=== PATIENT | female | born 1945 | race Caucasian/White ===

== ENCOUNTER 2016-12-24 11:34 | Emergency (ER) | payer OTHER, MEDICARE ==
[~2016-12-24] VITALS: Ht 154.9 cm; Wt 54.4 kg
[2016-12-24] MEDS ORDERED: MECLIZINE 25MG25 MG PO (12:01)
[2016-12-24] MEDS ORDERED: OMEPRAZOLE20 MG PO (12:01)
[2016-12-24] MEDS ORDERED: LIPITOR80 MG PO (12:02)
[2016-12-24] MEDS ORDERED: EFFIENT10 M2 PO (12:03)
[2016-12-24] MEDS ORDERED: MULTIVITAMIN1 SGL PO (12:04)
[2016-12-24] MEDS ORDERED: GARLIC500 MG PO (12:04)
[2016-12-24] MEDS ORDERED: VITAMIN D1000 IU PO (12:05)
[2016-12-24] MEDS ORDERED: VENTOLIN H0.09 MG/AC IH (12:05)
[2016-12-24] MEDS ORDERED: CARVEDILOL3.125 MG PO (12:06)
[2016-12-24] MEDS ORDERED: VALSARTAN AND H1 TA1 PO (12:07)
[2016-12-24 12:12] LABS: LYMPH # 0.9 K/mm3 (0.7-4.5); LYMPH % 22.7 % (10-50.0)
--- NOTE | 2016-12-24 12:13 | RADIOLOGY REPORT PS360 ---
CHEST(2 VIEWS-NOT PORTABLE) COMPARISON: Portable upright chest 12/19/2008 HISTORY: Shortness of breath TECHNIQUE: PA and lateral chest FINDINGS: The lung spivey are well expanded and appear clear of infiltrate. There is borderline cardio megaly without failure. There is no pleural fluid. There are tiny calcified hilar nodes. IMPRESSION: Borderline cardio megaly, no acute chest pathology noted
--- NOTE | 2016-12-24 12:17 | Emergency Room Report ---
History of Present Illness Time Seen by 114Lilly Presenting Problem in Triage Pt arrived:Walked Presenting Problem:PT REPORTS DIFF IN BREATHING AND HAS A HX OF BLOOD CLOTS AND FEELS THAT SHE MAY HAVE A BLOOD CLOT IN LUNG. Onset of symptoms date/time:12/24/1606/11/499 or onset unknown for: Treatment Prior to Arrival: [employer] Provided by: Sepsis Risk Assessment: Temp: 97.8 B/P: 170/89 MAP: 116 Pulse: 69 Resp: 16 Recent fever? N Clinical Suspician of Infection? N Mental Status: 1 - Regular (Normal Baseline) Sepsis Risk:Low Sepsis Risk Have you (or family members/close friends) recently traveled outside the [place]? N If Yes, where/when: Have you had exposure to infectious disease within the past month? N TB? Other? Specify: Patient has not had a DVT or blood clot in her legs. She refers to blood clots has some bruising on her arms. She has never had pulmonary embolism or blood clots. She states she is on blood thinner for heart disease, she's had history of heart attacks and strokes. She denies any fever chills or cough. He states that she was up at 5 AM and it had onset of RIGHT sided chest pain that was pleuritic moderate in severity and sharp." Going away at 1045am denies any discomfort whatsoever currently. When she had the pain was she was short of breath she denied any nausea or swelling she states it was in the RIGHT midaxillary line in her chest. sHe describes it as being in her lung. She states she is concerned she had a blood clot in her lung she denies any leg pain or swelling. She states she has a history of kidney failure but does not do dialysis ALLERGIES Coded Allergies: Penicillins (12/24/16) acyclovir (12/24/16) aliskiren (From TEKTURNA) (12/24/16) amlodipine (From NORVASC) (12/24/16) amoxicillin (12/24/16) aspirin (12/24/16) azithromycin (From ZITHROMAX) (12/24/16) ceftriaxone (From ROCEPHIN) (12/24/16) cephalexin (12/24/16) codeine (12/24/16) doxycycline (12/24/16) escitalopram (From LEXAPRO) (12/24/16) gemifloxacin (From FACTIVE) (12/24/16) isradipine (From DYNACIRC) (12/24/16) levofloxacin (From LEVAQUIN) (12/24/16) lisinopril (12/24/16) nebivolol (From BYSTOLIC) (12/24/16) olmesartan (From BENICAR) (12/24/16) pentazocine (From TALWIN COMPOUND) (12/24/16) ramipril (From ALTACE) (12/24/16) simvastatin (12/24/16) sulfamethoxazole (From SEPTRA) (12/24/16) trimethoprim (From SEPTRA) (12/24/16) verapamil (From VERELAN) (12/24/16) zolmitriptan (From ZOMIG) (12/24/16) Uncoded Allergies: ALLEREX DF (I-HIVES 07/10/11) Home Medications Reported Medications Omeprazole (Omeprazole 20MG) 20 MG PO DAILY MECLIZINE HCL (Meclizine 25MG) 25 MG PO PRN PRN DIZZINESS Atorvastatin Calcium (Atorvastatin) 40 MG PO DAILY Prasugrel HCl (Effient) 10 MG PO DAILY MULTIVITAMIN (Multivitamins) 1 SGL PO DAILY Garlic 1,000 MG PO DAILY CHOLECALCIFEROL (VITAMIN D3) (Vitamin D3) 1,000 IUNITS PO DAILY ALBUTEROL (Ventolin Hfa) 1 PUFF IH Q6H6 Carvedilol (Carvedilol 3.125MG) 3.125 MG PO BID VALSARTAN/HYDROCHLOROTHIAZIDE (Valsartan-Hctz 160-12.5 MG Tab) 1 TAB PO DAILY History Medical History General CAD? Yes Angina: Yes PR: Yes Hypertension? Yes Hyperlipidemia? No CHF? No DVT? No PE? No COPD? No Asthma? Yes Anemia? No GERD? No Gastric ulcers? No GI Bleed? No Hernia? No Thyroid Problems? No Hypothyroidism? No CVA? No Seizures? No Diabetes? No Renal Insuffiency? No End Stage Renal Disease? No UTI? No Stones? No BPH? No GB Disease: Yes Nephritic Syndrome? No Asplenia? No Hepatitis? No Sickle Cell Disease? No Arthritis? No Migraines? No Cataracts? No Glaucoma? No MRSA? No HIV? No TB? No Anxiety? No Depression? No Cancer? No More? No Immunization Hx DT/Tetanus NOT SURE Flu LAST YEAR Pneumonia 1-4 YRS Surgical Hx Previous Surgery?Y Hysterect TUBAL LIG D & C Cholecystectomy CARDIAC STENT X2 CARDIAC BALLOON SURGERY Family History Family Hx Diabetes No CAD Yes Hypertension Yes Hyperlipidemia Yes Cancer Yes TB Yes Social History Smoking Hx Smoker: Never Smoker Tobacco: No Alcohol Alcohol: No Review of Systems All Other Systems Reviewed and Negative Physical Exam Vital Signs Vital Signs Date Time Temp Pulse Resp B/P Pulse O2 O2 Flow FiO2 Ox Delivery Rate 12/24 1715 97.8 65 16 160/72 99 12/24 1542 62 16 174/85 99 12/24 1450 97.8 58 16 165/75 99 12/24 1352 62 20 152/95 98 12/24 1311 20 98 12/24 1305 20 98 12/24 1304 60 20 137/76 98 12/24 1139 97.8 69 16 170/89 99 General Appearance: Nontoxic Head: Normocephalic, without obvious abnormality, atraumatic. Eyes: conjunctiva/corneas clear ENT: Mucous membranes moist. Neck: No jugular venous distention. Cardiac: regular rate and rhythm Lungs: Clear to auscultation bilaterally Abdomen: Nontender, Nondistended, positive bowel sounds, no rebound : No CVA tenderness Extremities: no edema Musculoskeletal: No chest wall tenderness No Homans sign No calf tenderness No swelling in legs Skin: No rashes or lesions to exposed skin. Neurologic: Alert. No gross focal deficits Psychiatric: Normal affect (Gabino DIAZ, Mina) General Appearance normal appearance Respiratory Status No: respiratory distress. Cardiovascular no JVD Neurologic alert Medical Decision Making LABS/Meds/Orders Pt receiving controlled substance in ED? No Comment 602pm August reports VQ called back with negative VQ 610pm I discussed with patient and her relative that any time there is pain in the area of the chest that he could be from the heart, discussed with her that her electrocardiogram had changed from 2008. Discussed with her sudden and permanent disability. He states he desires to go home and does not desire admission to the hospital have a call out to Dr. Nicole. Second troponin is negative here her VQ scan is done and shows no blood clot. she has been pain free here. [address] Geo Nicole's patient and RIGHT sided chest pain from 5 AM at 10:45 AM and chest pain-free that she is desiring to go home discussed with the electrocardiogram change with a LEFT bundle-branch block that is new from 2008 2 sets enzymes negative VQ scan was negative that I offered patient admission to the hospital and she desired to go home Dr. Guardado states that is okay and they will follow. Results/Orders Laboratory Tests 12/24/16 1644: Troponin I 0.02 12/24/16 1200: Sodium 134 L, Potassium 3.5, Chloride 100, Carbon Dioxide 24, BUN 21 H, Creatinine 1.4 H, Estimated Creat Clear 32 L, Estimated GFR (MDRD) 37 L, Glucose 111 H, Calcium 8.8, Total Bilirubin 0.2, AST 23, ALT 22, Alkaline Phosphatase 140 H, Creatine Kinase 52, CK-MB (CK-2) Rel Index 1.2, CK and CKMB Interp 0.6, Troponin I < 0.02, Total Protein 8.9 H, Albumin 3.3 L, Globulin 5.6 H, Albumin/Globulin Ratio 0.6 L, D-Dimer 975 *H, WBC 3.9 L, RBC 3.42 L, Hgb 10.4 L, Hct 31.1 L, MCV 91.0, RDW 12.4, Plt Count 247, MPV 7.9, Gran % 68.7, Gran # 2.7, Lymphocytes % 22.7, Monocytes % 5.4, Eosinophils % 2.6, Basophils % 0.6, Lymphocytes # 0.9, Monocytes # 0.2, Eosinophils # 0.1, Basophils # 0.0, PUBS MCHC 33.2, MCH 30.2 Current Medication Orders Sig/Akua Start time Last Medication Dose Route Stop Time Status Admin Miscellaneous 1 DOSE ONCE ONE 12/24 1630 UNV 12/24 IV 12/24 1631 1629 Miscellaneous 1 DOSE ONCE ONE 12/24 1630 UNV 12/24 IV 12/24 1631 1629 Sodium Chloride 10 ML ONCE ONE 12/24 1630 UNV 12/24 IV 12/24 1631 1629 Sodium Chloride 10 ML PRN PRN 12/24 1145 AC IV 12/25 1142 Orders Procedure Date/time Status TROPONIN I 12/24 1602 Complete ELECTROCARDIOGRAM REQUEST 12/24 1142 Active IV SALINE LOCK 12/24 1142 Active D-DIMER 12/24 1142 Complete CBC WITH AUTO DIFF 12/24 1142 Complete CARDIAC ENZYMES 12/24 1142 Complete CHEM 12 PROFILE 12/24 1142 Complete CM/EKG CM/microsoft dynamics ax developer Rhythm Normal Sinus Rhythm Rate 63 Ectopy No Comments LEFT bundle branch block EKG rate, NSR, no evid. of ischemic chgs, no ectopy, LBBB Comments Normal axis nonspecific electrocardiogram Departure Departure Time of Disposition 1820 Disposition DC Home or Self Care(routine) Clinical Impression Primary Impression: Chest pain Condition STABLE Referrals Tre Luke MD (PCP/Family) Patient Instructions DI for Chest Pain Additional Instructions As discussed chest pain can cause sudden permanent disability if it comes from heart we have offered U admission to the hospital review of desire to go home. Call Dr. Nicole first thing in the morning for follow-up. return immediately to ER if any discomfort anywhere in your chest or in your "lung" Discharge Counseling Counseled pt/family regarding diagnosis, test results, medications/RX, home care, follow up needs ED Critical Care Critical Care No If Critical Care minutes are documented, the time involved in the performance of seperately reportable procedures was not counted toward critical care time documented. I directly delivered medical care to this critically ill and/or injured patient. Timely evaluation and treatment was necessary to address the significant organ system(s) dysfunction present in this patient. at 1825
[2016-12-24 12:18] LABS: HEMOGLOBIN 10.4 g/dL (12.2-16.2)
--- OUTSIDE RECORDS SUMMARY | 2016-12-24 12:26 | External Medical Summary Rpt ---
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 I16.9 Hypertensiv e crisis, unspecified R07.9 Chest pain, unspecified Z12.31 ENCNTR SCREEN MAMMOGRAM FOR MALIGNANT NEOPLASM OF BREAST Z74.09 Other reduced mobility Z78.0 ASYMPTOMATI C MENOPAUSAL STATE Z86.79 Personal history of other diseases of the circulatory system Results Labs Lab Lab Date Result Refere Interp Status Commen Order Detail nces retati t Range on Troponin I SerPl-mCnc (12-09-2016 07:30) Troponi 1.717 <=0.039 complet n I 017 ng/mL ed SerPl-m 07:30 Cnc aPTT PPP (12-09-2016 07:30) aPTT 50.5 45.0-60 complet PPP 017 seconds .0 ed 07:30 Bas Metab 2000 Pnl SerPl (12-09-2016 07:30) Anion 8.0 3.0-11. complet Gap3 017 mmol/L 0 ed SerPl-s 07:30 Cnc BUN/Cre 16.4 7.0-25. complet at 017 0 ed SerPl 07:30 GFR/BSA 49 >60 complet .pred 017 mL/min/ ed SerPl 07:30 1.73 MDRD-Ar VRat Calcium 9.6 8.7-10. complet 017 mg/dL 4 ed XXX-sCn 07:30 c CO2 25.0 20.0-31 complet SerPl-s 017 mmol/L .0 ed Cnc 07:30 Chlorid 103 99-109 complet e 017 mmol/L ed SerPl-s 07:30 Cnc Potassi 3.7 3.5-5.5 complet um 017 mmol/L ed Bld-sCn 07:30 c Sodium 136 132-146 complet Bld-sCn 017 mmol/L ed c 07:30 Creat 1.10 0.60-1. complet Bld-mCn 017 mg/dL 30 ed c 07:30 BUN 18 9-23 complet Bld-mCn 017 mg/dL ed c 07:30 Glucose 95 70-100 complet 017 mg/dL ed Bld-mCn 07:30 c CBC (hemogram) Bld Auto (12-09-2016 07:30) Platele 208 150-450 complet t # Bld 017 10*3/mm ed Auto 07:30 3 PMV Bld 10.2 fL 6.0-12. complet Auto 017 0 ed 07:30 RDW RBC 41.9 fl 37.0-54 complet Auto 017 .0 ed 07:30 RDW RBC 12-09- 12.5 % 11.3-14 complet 017 .5 ed Auto-Rt 07:30 o MCHC 33.3 32.0-36 complet RBC 017 g/dL .0 ed Auto-mC 07:30 nc MCH RBC 30.3 pg 27.0-31 complet Qn 017 .0 ed Auto 07:30 MCV RBC 90.9 fL 80.0-99 complet Auto 017 .0 ed 07:30 Hct VFr 30.0 % 34.5-44 complet Bld 017 .0 ed Auto 07:30 Hgb 10.0 11.5-15 complet Bld-mCn 017 g/dL .5 ed c 07:30 RBC # 17-2 3.30 3.89-5. complet Bld 017 10*6/mm 14 ed Auto 07:30 3 WBC 12-09- 2.91 3.50-10 complet nRBC 017 10*3/mm .80 ed cor # 07:30 3 Bld aPTT PPP (12-08-2016 17:56) aPTT 49.5 45.0-60 complet PPP 017 seconds .0 ed 17:56 PA ADP PRP-aCnc (12-08-2016 11:29) PA ADP 323 PRU complet PRP-aCn 017 ed c 11:29 aPTT PPP (12-08-2016 11:29) aPTT 49.0 45.0-60 complet PPP 017 seconds .0 ed 11:29 Hgb A1c Bld (12-08-2016 05:41) Hgb A1c 5.70 % 4.80-5. complet MFr 017 60 ed Bld 05:41 aPTT PPP (12-08-2016 05:41) aPTT 58.1 45.0-60 complet PPP 017 seconds .0 ed 05:41 Lipid pnl with direct LDL SerPl (12-08-2016 05:41) Articho 84 0-130 complet ke IgE 017 mg/dL ed Qn 05:41 HDLc 30 40-60 complet SerPl-m 017 mg/dL ed Cnc 05:41 Trigl 109 0-150 complet SerPl-m 017 mg/dL ed Cnc 05:41 Cholest 150 0-200 complet 017 mg/dL ed SerPl-m 05:41 Cnc Troponin I SerPl-mCnc (12-08-2016 00:32) Troponi 2.645 <=0.039 complet n I 017 ng/mL ed SerPl-m 00:32 Cnc aPTT PPP (12-08-2016 00:32) aPTT 35.0 45.0-60 complet PPP 017 seconds .0 ed 00:32 Prothrombin time (12-08-2016 00:32) INR PPP 1.04 complet 017 ed 00:32 Prothro 11.3 9.6-11. complet mbin 017 Seconds 5 ed time 00:32 CBC W Diff pnl,unspecified Bld (12-08-2016 00:32) Imm 0.00 0.00-0. complet Granulo 017 10*3/mm 03 ed cytes # 00:32 3 Bld Basophi 0.00 0.00-0. complet ls # 017 10*3/mm 20 ed Bld 00:32 3 Auto Eosinop 07-16-2 0.01 0.00-0. complet hil # 017 10*3/mm 30 ed Bld 00:32 3 Auto Monocyt 07-16-2 0.36 0.00-1. complet es # 017 10*3/mm 00 ed Bld 00:32 3 Auto Lymphoc 07-16-2 1.00 0.60-4. complet ytes # 017 10*3/mm 80 ed Bld 00:32 3 Auto Neutrop 16-2 2.88 1.50-8. complet hils # 017 10*3/mm 30 ed Bld 00:32 3 Auto Imm -16-2 0.0 % 0.0-0.6 complet Granulo 017 ed cytes/l 00:32 euk NFr Bld Basophi 16-2 0.0 % 0.0-1.0 complet ls/leuk 017 ed NFr 00:32 Bld Auto Eosinop -16-2 0.2 % 0.0-3.0 complet hil/janes 017 ed k NFr 00:32 Bld Auto Monocyt 16-2 8.5 % 0.0-12. complet es/leuk 017 0 ed NFr 00:32 Bld Auto Lymphoc -16-2 23.5 % 24.0-44 complet ytes/le 017 .0 ed uk NFr 00:32 Bld Auto Neutrop 16-2 67.8 % 41.0-71 complet hils/le 017 .0 ed uk NFr 00:32 Bld Auto Platele 16-2 194 150-450 complet t # Bld 017 10*3/mm ed Auto 00:32 3 PMV Bld 16-2 10.0 fL 6.0-12. complet Auto 017 0 ed 00:32 RDW RBC 16-2 41.7 fl 37.0-54 complet Auto 017 .0 ed 00:32 RDW RBC -16-2 12.6 % 11.3-14 complet 017 .5 ed Auto-Rt 00:32 o MCHC 16-2 32.9 32.0-36 complet RBC 017 g/dL .0 ed Auto-mC 00:32 nc MCH RBC 16-2 30.0 pg 27.0-31 complet Qn 017 .0 ed Auto 00:32 MCV RBC 91.2 fL 80.0-99 complet Auto 017 .0 ed 00:32 Hct VFr 28.0 % 34.5-44 complet Bld 017 .0 ed Auto 00:32 Hgb 9.2 11.5-15 complet Bld-mCn 017 g/dL .5 ed c 00:32 RBC # 16- 3.07 3.89-5. complet Bld 017 10*6/mm 14 ed Auto 00:32 3 WBC 4.25 3.50-10 complet nRBC 017 10*3/mm .80 ed cor # 00:32 3 Bld Troponin I SerPl-mCnc (12-07-2016 22:29) Troponi 1.540 <=0.039 complet n I 017 ng/mL ed SerPl-m 22:29 Cnc Troponin I SerPl-mCnc (12-07-2016 19:24) Troponi 0.547 <=0.039 complet n I 017 ng/mL ed SerPl-m 19:24 Cnc Troponin I SerPl-mCnc (12-07-2016 15:54) Troponi 12-07- 0.032 <=0.039 complet n I 017 ng/mL ed SerPl-m 15:54 Cnc TSH SerPl (12-07-2016 15:54) TSH 1.471 0.350-5 complet SerPl 017 mIU/mL .350 ed DL<=0.0 15:54 5 mIU/L-a Cnc Troponin T SerPl Ql (12-07-2016 13:00) Troponi 0.00 0.00-0. complet n I 017 ng/mL 07 ed SerPl-m 13:00 Cnc UA Microscopic Pnl # Ur Auto (12-07-2016 11:58) Ref lab Automat complet test 017 ed ed method 11:58 Microsc opy Hyaline None 0-6 complet Casts 017 Seen ed Ur Ql 11:58 /LPF Auto [place] None None complet s 017 Seen Seen, ed #/area 11:58 /HPF 0-2 UrnS HPF Bacteri [id number] None complet a Ur Ql 017 00 Not Seen, ed Auto 11:58 detecte Trace d SCT /HPF WBC Ur None None complet Ql Auto 017 Seen Seen ed 11:58 /HPF RBC # 12-07- 0-2 None complet Ur 017 /HPF Seen, ed 11:58 0-2 UA Dipstick Pnl Ur (12-07-2016 11:58) Bilirub [id number] Negativ complet Ur Ql 017 09 e ed Strip 11:58 Negativ e SCT Ketones [id number] Negativ complet Ur Ql 017 09 e ed Strip 11:58 Negativ e SCT Glucose [id number] Negativ complet Ur 017 09 e ed Strip-m 11:58 Negativ Cnc e SCT Sp Gr <= 1.001-1 complet Ur 017 1.005 .030 ed Strip 11:58 pH Ur 6.0 5.0-8.0 complet Strip.a 017 ed uto 11:58 Clarity [id number] Clear complet Ur 017 01 ed 11:58 Clear SCT Color [id number] Yellow, complet Ur 017 09 Straw ed 11:58 Yellow color SCT Urobili 0.2 0.2 - complet nogen 017 E.U./dL 1.0 ed Ur Ql 11:58 E.U./dL Strip Nitrite [id number] Negativ complet Ur Ql 017 09 e ed Strip 11:58 Negativ e SCT Leukocy [id number] Negativ complet te 017 09 e ed esteras 11:58 Negativ e Ur Ql e SCT Strip.a uto Prot Ur 30 Negativ complet Ql 017 mg/dL e ed Strip 11:58 (1+) Hgb Ur [id number] Negativ complet Ql 017 09 e ed Strip.a 11:58 Negativ uto e SCT Troponin T SerPl Ql (12-07-2016 10:45) Troponi 12-07- 0.00 0.00-0. complet n I 017 ng/mL 07 ed SerPl-m 10:45 Cnc BNP SerPl-mCnc (12-07-2016 10:40) BNP 125.0 0.0-100 complet SerPl-m 017 pg/mL .0 ed Cnc 10:40 LPL SerPl-cCnc (12-07-2016 10:40) Lipase 66 U/L 6-51 complet SerPl-c 017 ed Cnc 10:40 Comp Metab 1998 Pnl SerPl (12-07-2016 10:40) Anion 12-07-2 9.0 3.0-11. complet Gap3 017 mmol/L 0 ed SerPl-s 10:40 Cnc BUN/Cre 21.8 7.0-25. complet at 017 0 ed SerPl 10:40 Glucose 105 70-100 complet 017 mg/dL ed Bld-mCn 10:40 c Albumin 0.8 1.5-2.5 complet /Glob 017 g/dL ed SerPl 10:40 Globuli 4.7 complet n Ur 017 gm/dL ed Elph-mC 10:40 nc GFR/BSA 49 >60 complet .pred 017 mL/min/ ed SerPl 10:40 1.73 MDRD-Ar VRat Bilirub 0.2 0.3-1.2 complet 017 mg/dL ed SerPl-m 10:40 Cnc ALP 115 U/L 25-100 complet SerPl-c 017 ed Cnc 10:40 AST 12-07- 29 U/L 0-33 complet SerPl-c 017 ed Cnc 10:40 ALT 12-07-2 16 U/L 7-40 complet SerPl w 017 ed 10:40 P-5'-P- cCnc Albumin 12-07- 3.90 3.20-4. complet 017 g/dL 80 ed SerPl-m 10:40 Cnc Prot 12-07-2 8.6 5.7-8.2 complet SerPl-m 017 g/dL ed Cnc 10:40 Calcium 12-07- 10.0 8.7-10. complet 017 mg/dL 4 ed XXX-sCn 10:40 c CO2 23.0 20.0-31 complet SerPl-s 017 mmol/L .0 ed Cnc 10:40 Chlorid 101 99-109 complet e 017 mmol/L ed SerPl-s 10:40 Cnc Potassi 4.3 3.5-5.5 complet um 017 mmol/L ed Bld-sCn 10:40 c Sodium 133 132-146 complet Bld-sCn 017 mmol/L ed c 10:40 Creat 1.10 0.60-1. complet Bld-mCn 017 mg/dL 30 ed c 10:40 BUN 24 9-23 complet Bld-mCn 017 mg/dL ed c 10:40 CBC W Diff pnl,unspecified Bld (12-07-2016 10:40) Neutrop 4.06 1.50-8. complet hils # 017 10*3/mm 30 ed Bld 10:40 3 Auto Imm 0.0 % 0.0-0.6 complet Granulo 017 ed cytes/l 10:40 euk NFr Bld Basophi 0.2 % 0.0-1.0 complet ls/leuk 017 ed NFr 10:40 Bld Auto Eosinop 2.0 % 0.0-3.0 complet hil/janes 017 ed k NFr 10:40 Bld Auto Monocyt 7.7 % 0.0-12. complet es/leuk 017 0 ed NFr 10:40 Bld Auto Lymphoc 15.9 % 24.0-44 complet ytes/le 017 .0 ed uk NFr 10:40 Bld Auto Neutrop 74.2 % 41.0-71 complet hils/le 017 .0 ed uk NFr 10:40 Bld Auto Platele 242 150-450 complet t # Bld 017 10*3/mm ed Auto 10:40 3 PMV Bld 10.2 fL 6.0-12. complet Auto 017 0 ed 10:40 RDW RBC 40.8 fl 37.0-54 complet Auto 017 .0 ed 10:40 RDW RBC 12.4 % 11.3-14 complet 017 .5 ed Auto-Rt 10:40 o MCHC 07-15-2 33.4 32.0-36 complet RBC 017 g/dL .0 ed Auto-mC 10:40 nc MCH RBC 07-15-2 30.2 pg 27.0-31 complet Qn 017 .0 ed Auto 10:40 MCV RBC 07-15-2 90.2 fL 80.0-99 complet Auto 017 .0 ed 10:40 Hct VFr 07-15-2 33.2 % 34.5-44 complet Bld 017 .0 ed Auto 10:40 Hgb 07-15-2 11.1 11.5-15 complet Bld-mCn 017 g/dL .5 ed c 10:40 RBC # 07-15-2 3.68 3.89-5. complet Bld 017 10*6/mm 14 ed Auto 10:40 3 WBC 07-15-2 5.47 3.50-10 complet nRBC 017 10*3/mm .80 ed cor # 10:40 3 Bld Imm 07-15-2 0.00 0.00-0. complet Granulo 017 10*3/mm 03 ed cytes # 10:40 3 Bld Basophi 07-15-2 0.01 0.00-0. complet ls # 017 10*3/mm 20 ed Bld 10:40 3 Auto Eosinop 07-15-2 0.11 0.00-0. complet hil # 017 10*3/mm 30 ed Bld 10:40 3 Auto Monocyt 07-15-2 0.42 0.00-1. complet es # 017 10*3/mm 00 ed Bld 10:40 3 Auto Lymphoc 07-15-2 0.87 0.60-4. complet ytes # 017 10*3/mm 80 ed Bld 10:40 3 Auto
--- OUTSIDE RECORDS SUMMARY | 2016-12-24 12:26 | External Medical Summary Rpt ---
Author Author , PRACHI Cano PRACHI Address Unknown Phone [email or web address] Purpose Continuity of Care Document - 12-07-2016 [...] #/area 11:58 /HPF 0-2 UrnS HPF Bacteri [id number] None complet a Ur Ql 017 00 Not Seen, ed Auto 11:58 detecte Trace d SCT /HPF WBC Ur None None complet Ql Auto 017 Seen Seen ed 11:58 /HPF RBC # 12-07- 0-2 None complet Ur 017 /HPF Seen, ed 11:58 0-2 UA Dipstick Pnl Ur (12-07-2016 11:58) Bilirub [id number] Negativ complet Ur Ql 017 09 e ed Strip 11:58 Negativ e SCT Ketones [id number] Negativ complet Ur Ql 017 09 e ed Strip 11:58 Negativ e SCT Glucose [id number] Negativ complet Ur 017 09 e ed Strip-m 11:58 Negativ Cnc e SCT Sp Gr <= 1.001-1 complet Ur 017 1.005 .030 ed Strip 11:58 pH Ur 6.0 5.0-8.0 complet Strip.a 017 ed uto 11:58 Clarity [id number] Clear complet Ur 017 01 ed 11:58 Clear SCT Color [id number] Yellow, complet Ur 017 09 Straw ed 11:58 Yellow color SCT Urobili 0.2 0.2 - complet nogen 017 E.U./dL 1.0 ed Ur Ql 11:58 E.U./dL Strip Nitrite [id number] Negativ complet Ur Ql 017 09 e ed Strip 11:58 Negativ e SCT Leukocy [id number] Negativ complet te 017 09 e ed esteras 11:58 Negativ e Ur Ql e SCT Strip.a uto Prot Ur 30 Negativ complet Ql 017 mg/dL e ed Strip 11:58 (1+) Hgb Ur [id number] Negativ complet Ql 017 09 e ed [...]
--- OUTSIDE RECORDS SUMMARY | 2016-12-24 12:27 | External Medical Summary Rpt ---
Demographics Preferred Language Mongolian Marital Status Unknown Jewish Affiliation Unknown Race Unknown Ethnic Group Unknown Author Author , PRACHI VELARDE Address Unknown Phone Immunization Unable to retrieve immunization data due to connection failure with Immunization Registry. Please try again later.
--- OUTSIDE RECORDS SUMMARY | 2016-12-24 12:27 | External Medical Summary Rpt ---
Author Author [employer] Organization [employer] Address Unknown Phone Unavailable Purpose Continuity of Care Document - through 2016
--- OUTSIDE RECORDS SUMMARY | 2016-12-24 12:27 | External Medical Summary Rpt ---
Author Author [employer]ACHI Day, [employer] Organization [employer] Address Unknown Phone Unavailable
--- OUTSIDE RECORDS SUMMARY | 2016-12-24 12:27 | External Medical Summary Rpt ---
Demographics Preferred Language Tamazight Marital Status Unknown Alevism Affiliation Unknown Race Unknown Ethnic Group Unknown Author Author , PRACHI VELARDE Address Unknown Phone Immunization Unable to retrieve immunization data due to connection failure with Immunization Registry. Please try again later.
[2016-12-24 12:35] LABS: BUN 21 mg/dL (7-18)
[2016-12-24 12:36] LABS: GFR (ESTIMATED) 37 ML/MIN (59-)
--- NOTE | 2016-12-24 17:43 | RADIOLOGY REPORT PS360 ---
[facility] LUNG VENT PERFUSION Ordering Physician: Mina Lloyd MD Patient Age: 71 years: Female HISTORY: right side chest pain positive ddimer ... Right-sided chest pain. Positive d-dimer. TECHNIQUE: Ventilation scan performed following 35.8 mCi Tc DTPA delivered is aerosol. Subsequent to this a 0.13 mCi MAA injected for the perfusion scan FINDINGS Ventilation scan shows slightly minimal patchy ventilation and slight central clumping of activity which can be seen with COPD or reflect bronchitis COPD Perfusion scan was then performed subsequently. Normal perfusion scan No perfusion defects. No evidence of pulmonary embolism. Good quality perfusion study. With this negative perfusion study less than 3-5 % chance of PE. No ventilation/perfusion mismatch... IMPRESSION: No evidence of pulmonary embolism Normal perfusion scan Very slightly patchy appearance on the ventilation scan with mild central clumping of activity. Nonspecific but can be seen with bronchitis or COPD
[2016-12-24 18:37] VITALS: BP 160/72
== END 2016-12-24 18:39 | disposition home or self-care (01) ==
LOC: ER 11:34
PROVIDERS: Emergency Medicine
DX: R07.9 Chest pain, unspecified (principal); I25.10 Atherosclerotic heart disease of native coronary artery without angina pectoris; I10 Essential (primary) hypertension
CPT/HCPCS: A9540; A9567

== ENCOUNTER → 2017-02-07 | Outpatient (CLI) | payer OTHER, MEDICARE ==
[~2017-02-07] MED LIST: CARVEDILOL3.125 MG PO; EFFIENT10 M2 PO; GARLIC500 MG PO; LIPITOR80 MG PO; MECLIZINE 25MG25 MG PO; MULTIVITAMIN1 SGL PO; OMEPRAZOLE20 MG PO; VALSARTAN AND H1 TA1 PO; VENTOLIN H0.09 MG/AC IH; VITAMIN D1000 IU PO; ZYRTEC10 M2 PO
[2017-02-10 10:43] LABS: STOOL OCCULT BLOOD NEGATIVE (NEG)
[2017-02-10 12:23] LABS: URINE COLLECTION TIME 24 HOURS; URINE TOTAL PROTEIN CONC 157 mg/24 HR (40-90)
[2017-02-10 13:54] LABS: URINE COLLECTION TIME 24 HOURS
== END ==
LOC: LAB 09:09
PROVIDERS: Internal Medicine
DX: D64.9 Anemia, unspecified (principal)
CPT/HCPCS: G0328

== ENCOUNTER → 2017-02-08 | Outpatient (CLI) | payer OTHER, MEDICARE ==
[2017-02-10 10:43] LABS: STOOL OCCULT BLOOD NEGATIVE (NEG)
== END ==
LOC: LAB 09:28
PROVIDERS: Internal Medicine
DX: D64.9 Anemia, unspecified (principal)
CPT/HCPCS: G0328

== ENCOUNTER → 2017-02-25 | Outpatient (CLI) | payer OTHER, MEDICARE | LOC: RT 13:34 | DX: J18.9 Pneumonia, unspecified organism (principal); R06.02 Shortness of breath ==

== ENCOUNTER → 2017-02-28 | Outpatient (CLI) | payer OTHER, MEDICARE ==
--- NOTE | 2017-02-28 13:44 | RADIOLOGY REPORT PS360 ---
PROCEDURE: 2-D M-mode and color Doppler study INDICATIONS FOR THE TEST: Chest pain COPD Heart Murmur Tobacco Smoking Palpitations Fatigue Syncope Edema Hypertension+Diabetes Mellitus Rheumatic Fever SOB+[place] Obesity Hyperlipidemia Family History HD Additional History [place] X3, STENTS PATIENT INFORMATION HEIGHT: 61 WEIGHT:120 GENDER: Female B/P:170/63 2-D/M-MODE INTERPRETATION: 2-D MEASUREMENTS OBSERVED VALUES IN CMS Right Ventricular Dimension (RVDd) 2.3 Interventricular Septum (Thickness)(IVsd) 1.0 Left Ventricular Internal Dimensions(LVIDd) 4.8 Left Ventricular Posterior Wall (Thickness)(LVPWd) 0.8 Aortic Root 2.8 Aortic Cusp Separation 1.8 Left Atrial Dimensions (LAD) 3.9 2D 1. Left atrium is mildly enlarged, left ventricle is normal size, there is mild concentric left ventricular hypertrophy, visually estimated ejection fraction 55% with no obvious regional wall motion abnormality. 2. The right atrium and right ventricle are relatively normal size and function. 3. The aortic valve is minimally thickened and calcified, leaflet continue to display mobility. 4. The mitral and tricuspid valve leaflets are minimally thickened. 5. The pulmonic valve is poorly visualized. 6. No significant pericardial effusion noted. DOPPLER INTERROGATION: Doppler interrogation of the aortic, mitral and tricuspid valvular presence of mild aortic, mild mitral and tricuspid regurgitation, tricuspid and jet velocity insufficient for calculation of the right ventricular systolic pressure. Grade 1 diastolic dysfunction seen with tissue Doppler evidence of raised left atrial pressure. CONCLUSION: 1. Mildly enlarged left atrium, normal left ventricular size, mild concentric left ventricular hypertrophy, visually estimated ejection fraction 55% with no obvious regional wall motion abnormality, grade 1 diastolic dysfunction seen with tissue Doppler evidence of raised left atrial pressure. 2. Mild aortic, mild mitral and tricuspid regurgitation. 3. No significant pericardial effusion noted.
== END ==
LOC: RT 09:07
DX: R06.02 Shortness of breath (principal); J18.9 Pneumonia, unspecified organism

== ENCOUNTER → 2017-03-06 | Outpatient (CLI) | payer OTHER, MEDICARE ==
[2017-03-06 12:23] LABS: HEMOGLOBIN 9.9 g/dL (12.2-16.2); LYMPH # 0.8 K/mm3 (0.7-4.5); LYMPH % 20.1 % (10-50.0)
[2017-03-06 15:08] LABS: BUN 23 mg/dL (7-18)
[2017-03-06 15:35] LABS: GFR (ESTIMATED) 40 ML/MIN (59-)
== END ==
LOC: LAB 11:31
PROVIDERS: Internal Medicine
DX: D64.9 Anemia, unspecified (principal)

== ENCOUNTER 2017-03-07 15:25 | Outpatient (CLI) | payer OTHER, MEDICARE ==
[~2017-03-07 15:25] MED LIST changes: -ZYRTEC10 M2 PO
[2017-03-07] MEDS ORDERED: ZYRTEC10 M2 PO (15:33)
[2017-03-07 15:40] VITALS: BP 183/75
== END 2017-03-07 15:53 | disposition home or self-care (01) ==
LOC: COP 15:25
DX: D64.9 Anemia, unspecified (principal)
CPT/HCPCS: J0885

== ENCOUNTER 2017-05-02 09:22 | Outpatient (CLI) | payer OTHER, MEDICARE ==
[~2017-05-02 09:22] MED LIST changes: +ZYRTEC10 M2 PO
[2017-05-02 13:25] VITALS: BP 188/80
[2017-05-02 13:30] VITALS: BP 178/74
== END 2017-05-02 13:40 | disposition home or self-care (01) ==
LOC: COP 09:22
DX: N18.3 Chronic kidney disease, stage 3 (moderate) (principal)

== ENCOUNTER 2017-05-05 09:48 | Outpatient (CLI) | payer OTHER, MEDICARE ==
[2017-05-05 10:22] LABS: HEMOGLOBIN 10.1 g/dL (12.2-16.2)
[2017-05-05 11:01] VITALS: BP 153/72
== END 2017-05-05 11:09 | disposition home or self-care (01) ==
LOC: COP 09:48
PROVIDERS: Nurse Practitioner
DX: N18.3 Chronic kidney disease, stage 3 (moderate) (principal)
CPT/HCPCS: J0885